=== PATIENT | male | born 1955 | race Caucasian/White ===

== ENCOUNTER 2018-12-07 17:56 | Inpatient (IN) | payer OTHER ==
[~2018-12-07] VITALS: Ht 177.8 cm; Wt 144.2 kg
[2018-12-07 19:20] LABS: BASOPHILS ABSOLUTE AUTO 0.01 K/mm3 (0.00-0.23); BASOPHILS PERCENT AUTO 0 % (0-2); EOSINOPHILS PERCENT AUTO 0 % (0-6); Hematocrit 45.1 % (37.0-53.0); Hemoglobin 14.7 g/dL (13.5-17.5); IMMATURE GRAN ABSOLUTE AUTO 0.06 K/mm3 (0.00-0.10); IMMATURE GRAN PERCENT AUTO 1 % (0-1); LYMPHOCYTES PERCENT AUTO 5 % (21-46); MONOCYTES ABSOLUTE AUTO 0.63 K/mm3 (0.16-1.47); MONOCYTES PERCENT AUTO 5 % (4-13); Mean Corpuscular HGB 30.5 pg (26.0-34.0); Mean Corpuscular HGB Conc 32.6 g/dL (31.5-36.5); Mean Corpuscular Volume 94 fL (80-100); Mean Platelet Volume 10.8 fL (9.1-12.4); NEUTROPHILS ABSOLUTE AUTO 10.59 K/mm3 (1.96-9.15); NEUTROPHILS PERCENT AUTO 89 % (41-73); Platelet Count 192 K/mm3 (150-400); RDW Coefficient Variation 12.6 % (11.7-14.2); RDW Standard Deviation 43.5 fL (35.1-46.3); Red Blood Cell Count 4.82 M/mm3 (4.30-5.90); White Blood Cell Count 11.89 K/mm3 (4.00-11.30)
[2018-12-07 19:24] LABS: Alanine Aminotransfer (ALT/SGP 544 U/L (12-78); Albumin, Blood 3.4 g/dL (3.4-5.0); Albumin/Globulin Ratio 0.9 (0.8-1.8); Alk Phos 193 U/L (50-136); Anion Gap 5 mmol/L (6-16); Aspartate Aminotrans (AST/SGOT 439 U/L (12-37); Bilirubin, Total 0.7 mg/dL (0.1-1.0); Blood Urea Nitrogen 17 mg/dL (8-24); Bun/Creatinine Ratio 18.8 (12.0-20.0); CO2, Blood 29 mmol/L (21-32); Calcium, Blood 8.9 mg/dL (8.5-10.1); Chloride, Blood 104 mmol/L (98-108); Creatinine, Blood 0.91 mg/dL (0.60-1.20); Globulin, Blood 3.8 g/dL (2.2-4.0); Glomerular Filtration Rate >60 (60-); Glucose, Blood 133 mg/dL (70-99); Potassium, Blood 3.8 mmol/L (3.5-5.5); Sodium, Blood 138 mmol/L (136-145); Total Protein, Blood 7.2 g/dL (6.4-8.2)
[2018-12-07] MEDS ORDERED: LOSARTAN POTASS25 MG PO (19:58)
[2018-12-07 21:12] LABS: Magnesium, Blood 1.8 mg/dL (1.6-2.4); Triglycerides 72 mg/dL (30-160)
[2018-12-08 05:28] LABS: Hematocrit 42.9 % (37.0-53.0); Hemoglobin 14.1 g/dL (13.5-17.5); Mean Corpuscular HGB 30.7 pg (26.0-34.0); Mean Corpuscular HGB Conc 32.9 g/dL (31.5-36.5); Mean Corpuscular Volume 94 fL (80-100); Mean Platelet Volume 10.3 fL (9.1-12.4); Platelet Count 180 K/mm3 (150-400); RDW Coefficient Variation 12.7 % (11.7-14.2); RDW Standard Deviation 43.6 fL (35.1-46.3); Red Blood Cell Count 4.59 M/mm3 (4.30-5.90); White Blood Cell Count 10.89 K/mm3 (4.00-11.30)
[2018-12-08 05:52] LABS: Alanine Aminotransfer (ALT/SGP 400 U/L (12-78); Albumin, Blood 3.2 g/dL (3.4-5.0); Albumin/Globulin Ratio 1.1 (0.8-1.8); Alk Phos 167 U/L (50-136); Anion Gap 5 mmol/L (6-16); Aspartate Aminotrans (AST/SGOT 173 U/L (12-37); Bilirubin, Total 0.8 mg/dL (0.1-1.0); Blood Urea Nitrogen 15 mg/dL (8-24); Bun/Creatinine Ratio 17.9 (12.0-20.0); CO2, Blood 28 mmol/L (21-32); Calcium, Blood 8.5 mg/dL (8.5-10.1); Chloride, Blood 108 mmol/L (98-108); Creatinine, Blood 0.84 mg/dL (0.60-1.20); Glomerular Filtration Rate >60 (60-); Glucose, Blood 93 mg/dL (70-99); Potassium, Blood 3.6 mmol/L (3.5-5.5); Sodium, Blood 141 mmol/L (136-145); Total Protein, Blood 6.2 g/dL (6.4-8.2)
--- NOTE | 2018-12-08 16:30 | NUR ---
SUMMARY PT IS A/O X4, PLEASANT AFFECT, AMBULATES, PERFORMS ADLS INDEPENDANTLY. DX PANCREATITIS. HE STATE NO ABD PAIN, NAUSEA OR DISCOMFORT @ THIS TIME. [place] [id number] @ ADMIT TO [id number] SYED ADV DIET FORM NPO TO CL. PT TOLERATING WELL. RECHECK LIPASE IN AM. VSS.
[2018-12-09 06:05] LABS: Anion Gap 6 mmol/L (6-16); Blood Urea Nitrogen 11 mg/dL (8-24); Bun/Creatinine Ratio 13.6 (12.0-20.0); CO2, Blood 28 mmol/L (21-32); Calcium, Blood 8.4 mg/dL (8.5-10.1); Chloride, Blood 105 mmol/L (98-108); Creatinine, Blood 0.81 mg/dL (0.60-1.20); Glomerular Filtration Rate >60 (60-); Glucose, Blood 88 mg/dL (70-99); Phosphorus, Blood 2.3 mg/dL (2.5-4.9); Potassium, Blood 3.9 mmol/L (3.5-5.5); Sodium, Blood 139 mmol/L (136-145)
--- NOTE | 2018-12-09 07:12 | NUR ---
SHIFT SUMMARY PATIENT IS ALERT AND ORIENTED. PATIENT'S IV INFILTRATED CALLED HOSPITALIST AND RECIEVED A NEW ORDER FOR NO IV ACCESS AND DC FLUIDS. PATIENT IS TOLERATING FLUIDS WELL. ALSO RECIEVED A DC ORDER FOR TELE. PATIENT SLEPT WELL THROUGHOUT THE NIGHT. NO NEW CHANGES, VITALS STABLE.
--- NOTE | 2018-12-09 08:45 | NUR ---
DISCHARGE INSTRUCTIONS REVIEWED WITH PT, NO IV PRESENT. PT AWAITING RIDE HOME AT THIS TIME.
--- NOTE | 2018-12-09 10:08 | NUR ---
PT DADA'D HOME AT [id number].
== END 2018-12-09 09:58 | disposition home or self-care (01) | DRG 439 ==
LOC: ER 17:56 → MEDS 21:46 → ENPENDDIS 12-09 09:37 → MEDS 12-09 09:58
PROVIDERS: Emergency Medicine; Internal Medicine; Nurse Practitioner Acute Care; ADMIT Internal Medicine
DX: K85.10 Biliary acute pancreatitis without necrosis or infection (principal); Z68.42 Body mass index [BMI] 45.0-49.9, adult; E66.01 Morbid (severe) obesity due to excess calories; I10 Essential (primary) hypertension; K75.81 Nonalcoholic steatohepatitis (NASH); E78.5 Hyperlipidemia, unspecified
CPT/HCPCS: 36415; 74176; 76700; 80053; 80069; 83690; 83735; 84478; 85025; 85027; 96374; 96375; 99285-25; J2405; J3010; J7030